=== PATIENT | female | born 1950 | race Caucasian/White ===

== ENCOUNTER 2024-02-05 13:44 | Observation (INO) ==
--- NOTE | 2024-02-05 13:57 | ED.PDOC ---
General ED Provider: Dr. TOÑO JONES DO Chief Complaint: Stroke Stated Complaint: Patient is a 73 yo F here for 30 minutes of mild R corner of the mouth facial droop and R facial numbness She ambulated well to room She is concerned for a stroke, she had some in 2015 and it took her awhile to regain faculties, last time her speech processing was affected Patient alert and oriented x 4 GCS 15 BP 158/90 No falls or injuries No recent surgeries No chest pain or sob Her last stroke [facility] Time Seen by Provider: 02/05/24 13:46 Primary Care Provider: SENDY ALVES Nursing and Triage Documentation Reviewed and Agree: Yes What is Opioid Naive?: *Opioid Naive implies the patient is not already taking opioids or not chronically receiving opioids on a daily basis. *PRN dosing is not "usually" associated with tolerance. *Patients are at higher risk of over-sedation and aspiration. What is Opioid Tolerant?: *Opioid Tolerance implies less than the expected response to an opioid. *Acquired tolerance is defined by the patient taking 60mg of oral morphine daily (or equianalgesic dose of another opioid) for 1 week or more. *Often associated with chronic pain. *May take more than usual dose to achieve desired pain control. Review of Systems Review Of Systems Constitutional: Denies Chills or Fever Eyes: Denies Blindness or Vision change Ears, Nose, Mouth, Throat: Denies Ear pain or Nose pain Respiratory: Denies Cough or Wheezing Cardiac: Denies Chest pain, Palpitations or Syncope GI: Denies Constipated or Diarrhea : Denies Dysuria or Frequency Musculoskeletal: Denies Back pain or Joint pain Skin: Denies Bruising or Rash Neurological: Denies Anxiety or Depressed Endocrine: Reports No symptoms Hematologic/Lymphatic: Reports No symptoms All Other Systems: Reviewed and Negative Physical Exam Physical Exam Appearance: Reports Well-appearing and Well-nourished Ill-appearing: Not Applicable Pain Distress: Not Applicable Eyes: Reports NELL, EOMI and Conjunctiva clear ENT: Reports Ears normal, Nose normal and Oropharynx normal Neck: Supple Respiratory: Reports Airway patent and Breath sounds clear; Denies Wheezes Cardiovascular: Reports RRR and Pulses normal GI/: Reports Soft and Nontender Musculoskeletal: Reports Normal strength and ROM intact Skin: Reports Warm and Dry Neurological: Reports Alert, Oriented and Other NIH Stroke Scale 1a. Level of Consciousness: 0=Alert and keenly responsive 1b. Level of Consciousness Questions: 0=Answers correctly to two questions 1c. Level of Consciousness Commands: 0=Performs two tasks correctly 2. Best Gaze: 0=Normal 3. Visual: 0=No visual loss 4. Facial Palsy: 1=Minor paresis (flattened nasolabila fold) 5a. Motor Left Arm: 0=No drift,arm holds 90 degrees for 10 sec., leg 30 degrees for 5 sec. 5b. Motor Right Arm: 0=No drift,arm holds 90 degrees for 10 sec., leg 30 degrees for 5 sec. 6a. Motor Left Le=No drift,arm holds 90 degrees for 10 sec., leg 30 degrees for 5 sec. 6b. Motor Right Le=No drift,arm holds 90 degrees for 10 sec., leg 30 degrees for 5 sec. 7. Limb Ataxia: 0=Absent 8. Sensory: 1=Mild to moderate sensory loss 9. Best Language: 0=No aphasia 10. Dysarthria: 0=Normal 11. Extincion and Inattention: 0=Normal Stroke Scale Total: 2 Interpretation EKG Interpretation EKG Interpretation By: ED Physician Time of EKG #1: 14:00 Interpretation: NSR rate 85 no stemi RAD Course Course 02/05/24 14:00 02/05/24 14:00 Orders, Labs, Meds: Lab Review 02/05/24 14:00 WBC 5.34 RBC 4.19 L Hgb 13.8 Hct 41.0 MCV 97.9 MCH 32.9 H MCHC 33.7 RDW Coeff of [place] 13.5 Plt Count 261 Immature Gran % (Auto) 0.2 Neut % (Auto) 46.4 Lymph % (Auto) 39.7 [place] % (Auto) 9.0 Eos % (Auto) 4.3 Baso % (Auto) 0.4 Neut # (Auto) 2.5 Lymph # (Auto) 2.1 [place] # (Auto) 0.5 Eos # (Auto) 0.2 Baso # (Auto) 0.0 Immature Gran # (Auto) 0.0 PT 10.2 INR 0.98 APTT 24.1 Sodium 136.8 Potassium 4.18 Chloride 104.3 Carbon Dioxide 25.8 Anion Gap 10.88 BUN 14.0 Creatinine 0.71 Estimated GFR (MDRD) 80.00 BUN/Creatinine Ratio 19.71 Glucose 132.4 H Calcium 9.56 Total Bilirubin 0.73 AST 35.6 ALT 22.9 Alkaline Phosphatase 45.3 L Total Protein 7.37 Albumin 4.52 Globulin 2.85 Albumin/Globulin Ratio 1.58 SARS CoV-2 RNA Rapid ANIBAL Negative Orders Category Date Time Status EKG-(ED ONLY) Stat CARDIO 02/05/24 13:51 Completed NPO REMINDER: IMAGING ONCE CARE 02/05/24 13:51 Completed ED ACCUCHECK ASSESSMENT .ONCE EMERGENCY 02/05/24 13:51 Active ED APPLY O2 .ONCE EMERGENCY 02/05/24 13:51 Active ED IV/MEDIPORT/POWERPORT .ONCE EMERGENCY 02/05/24 13:51 Active CBC W/ AUTO DIFF Stat LAB 02/05/24 14:00 Completed COMPREHENSIVE METABOLIC PANEL Stat LAB 02/05/24 14:00 Completed PARTIAL THROMBOPLASTIN TIME Stat LAB 02/05/24 14:00 Completed PT WITH INR Stat LAB 02/05/24 14:00 Completed SARS COV-2 RNA RAPID ANIBAL Stat LAB 02/05/24 14:00 Completed 0.9 % Sodium Chloride [Saline Flush] Meds 02/05/24 13:50 Active 1 syr IVF PRN PRN Aspirin [Aspirin Chewable] Meds 02/05/24 15:12 Discontinued 324 mg PO ONCE ONE Clopidogrel Bisulfate [Plavix] Meds 02/05/24 15:35 Discontinued 75 mg PO ONCE ONE Sodium Chloride 0.9% [Sodium Chloride] 1,000 ml Meds 02/05/24 13:50 Active IV 30 mls/hr Sodium Chloride 0.9% [Sodium Chloride] 1,000 ml Meds 02/05/24 13:50 Active IV 50 mls/hr CTA ANGIO HEAD Stat RADS 02/05/24 13:50 Completed CTA ANGIO NECK Stat RADS 02/05/24 13:50 Completed Medications Generic Name Dose Route Start Last Admin Trade Name Freq PRN Reason Stop Dose Admin Sodium Chloride 1,000 mls @ 50 mls/hr 02/05/24 13:50 02/05/24 15:16 Sodium Chloride IV 02/06/24 09:49 Not Given .Q20H STA Sodium Chloride 1,000 mls @ 30 mls/hr 02/05/24 13:50 02/05/24 15:16 Sodium Chloride IV 02/06/24 23:09 Not Given .[id number] STA Sodium Chloride 1 syr 02/05/24 13:50 0.9% Sodium Chloride 10 Ml Disp.Syrin IVF PRN PRN To flush IV Discontinued Medications Generic Name Dose Route Start Last Admin Trade Name Freq PRN Reason Stop Dose Admin Aspirin 324 mg 02/05/24 15:12 02/05/24 15:15 Aspirin 81 Mg Tab.Chew PO 02/05/24 15:13 324 mg ONCE ONE Administration Clopidogrel Bisulfate 75 mg 02/05/24 15:35 Clopidogrel Bisulfate 75 Mg Tablet PO 02/05/24 15:36 ONCE ONE Vital Signs: Temp Pulse Resp BP Pulse Ox 02/05/24 14:03 97.7 F 96 20 155/86 H 96 Neurology paged Confucianism, aspirin also given, CTA head and neck wnl Patient would like to stay at this facility for MRI and work up, pending confucianism neurology consult patient symptoms 100% abated MDM: patient is a 73 yo F here for R facial droop and numbness patient afebrile and vitally stable Hx from patient chart review by me 3+ labs and 2 images reviewed by me Exam reassuring Aspirin and plavix given CT had shows no ICH I consulted dr. Tom Acosta calibration engineer neurologist who recommends Dual antiplatelet therapy, with resolved symptoms, NIHSS 2 to now zero and clean CTA head and neck she can stay at [facility] for care DWIGHT Gonzalez accepts admission pending Confucianism cardiology faxes to see if her Loop recorder is MRI compatible WDX: Stroke like symptoms acute mild comepxlity DDX: I considered ICH, sepsis, CO2 narcosis but these are less likely SDOH: Patient has PCP and family support Patient admitted stable All questions answered We will plan for am MRI brain if able vs CT head with contrast if Loop recorder is not MRI compatible Physician Progress Note: [] Discharge Plan Discharge Patient Disposition: PLACED OBSERVATION Discharge Problem: Stroke-like symptoms Prescriptions: No Action cephalexin 500 MG capsule 500 mg PO Q12HR Qty: 20 0RF Did you review [place] [employer] for ALL controlled substances?: Not Applicable ED Provider: TOÑO JONES Condition: Good Agu[place] Coma Scale Agu[place] Coma Scale Response Scores: Best Response = 15 Comatose Client = 8 or Less Totally Unresponsive = 3
[2024-02-05 14:05] LABS: BASOPHILS % (AUTO) 0.4 % (0.0-3.0); EOSINOPHILS # (AUTO) 0.2 K/ul (0.0-0.7); EOSINOPHILS % (AUTO) 4.3 % (0.0-7.0); HEMOGLOBIN 13.8 g/dl (12.0-16.0); IMMATURE GRANULOCYTE % (AUTO) 0.2 % (0.0-5.0); LYMPHOCYTES # (AUTO) 2.1 K/uL (0.60-3.4); LYMPHOCYTES % (AUTO) 39.7 (10.0-50.0); MEAN CORPUSCULAR HEMOGLOBIN 32.9 pg (27.0-31.0); MEAN CORPUSCULAR HGB CONC 33.7 (31.8-35.4); MEAN CORPUSCULAR VOLUME 97.9 fl (81.0-99.0); MONOCYTES # (AUTO) 0.5 K/uL (0.4-2.0); NEUTROPHILS # (AUTO) 2.5 K/ul (2.0-6.9); NEUTROPHILS % (AUTO) 46.4 % (42.2-75.2); PLATELET COUNT 261 10^3/uL (140-440); RDW COEFFICIENT OF VARIATION 13.5 % (11.6-14.8); RED BLOOD COUNT 4.19 10^6/ul (4.20-5.40); WHITE BLOOD COUNT 5.34 K/ul (4.6-10.2)
[2024-02-05 14:20] LABS: ALANINE AMINOTRANSFERASE 22.9 U/L (0-35); ALBUMIN 4.52 g/dL (3.5-5.0); ALKALINE PHOSPHATASE 45.3 U/L (53-141); ASPARTATE AMINO TRANSFERASE 35.6 U/L (14-36); BILIRUBIN,TOTAL 0.73 mg/dL (0.2-1.3); CALCIUM 9.56 mg/dL (8.4-10.2); CARBON DIOXIDE 25.8 mmol/L (22-30.0); CHLORIDE 104.3 mmol/L (98-107); CREATININE 0.71 mg/dL (0.60-1.30); GLUCOSE 132.4 mg/dL (74-106); POTASSIUM 4.18 mmol/L (3.5-5.1); SARS COV-2 RNA RAPID NAAT NEGATIVE (NEGATIVE); SODIUM 136.8 mmol/L (134.5-145); TOTAL PROTEIN 7.37 g/dL (6.3-8.2)
--- NOTE | 2024-02-05 15:02 | CT ---
EXAM: CTA HEAD HISTORY: Right facial numbness and weakness. History of TIA. COMPARISON: None. TECHNIQUE: Unenhanced CT of the head was performed from the skull base to the vertex. CT angiography of the head was performed with 3D/MIP coronal and sagittal reconstructions for evaluation of the cir [place]andal of [place]. FINDINGS: CT head: No intracranial hemorrhage or extra-axial collection. No mass, mass effect or midline shift. The faith -white matter differentiation is preserved. Calcifications are noted in bilateral vasoganglia, nonsp ecific. Chronic lacunar infarct is noted in the right periventricular white matter. The ventricles are normal in size. The basal cisterns are patent. The visualized paranasal sinuses are clear. Th ere is small right mastoid effusion. There has been prior bilateral cataract surgery. The visualized osseous structures are unremarkable. CTA head: There is atherosclerotic calcification of the cavernous and supraclinoid internal carotid arteries. The anterior and middle cerebral arteries are normal in contour and caliber without large vessel occl usion. The vertebrobasilar system is patent. The superior cerebellar and posterior cerebral arteries are no rmal in contour and caliber. There is origin of the left PULMONOLOGY PHYSICIAN. There is no intracranial aneurysm or arteriovenous malformation. IMPRESSION: 1. No acute intracranial findings. 2. Chronic lacunar infarct in the right periventricular white matter. 3. No large vessel occlusion or high grade stenosis within the [place] of [place]. All CT scans are performed using dose optimization techniques as appropriate to the performed exam an d include at least one of the following: Automated exposure control, adjustment of the mA and/or kV according t o size, and the use of iterative reconstruction technique.
[2024-02-05 15:03] LABS: PROTHROMBIN TIME 10.2 SEC (9.3-11.0)
--- NOTE | 2024-02-05 15:03 | CT ---
EXAM: CTA NECK WITHOUT/WITH CONTRAST HISTORY: Right facial weakness/numbness. Previous transient ischemic attack. COMPARISON: None TECHNIQUE: Multi-slice pre and postcontrast transaxial helical images are acquired through the head and neck according to an angiogram protocol. 3-D volume images are provided. All CT scans are perfo rmed using dose optimization techniques as appropriate to the performed exam and includes at least on e of the following: Automated exposure control, adjustment of the mA and/or kV according to size, an d the use of iterative reconstruction technique. CONTRAST: Intravenous FINDINGS: The aorta is atherosclerotic. The left vertebral artery arises directly from the aortic arch. The b rachycephalic and subclavian arteries are patent. The vertebral arteries are patent bilaterally. Th e right vertebral artery is dominant. There is calcified atheromatous plaque at the bilateral caroti d bulbs without evidence of hemodynamically significant stenosis. The bilateral cervical through sup raclinoid segments of the internal carotid arteries are patent. There is no evidence of hemodynamica lly significant stenosis. No suspicious neck masses or lymphadenopathy. The lung apices are clear. Diffuse degenerative disc disease is noted. There is grade 1 anterolisthesis at C3-C4. There is gra de 1/2 anterolisthesis at C4-C5. Additional grade 1 anterolisthesis is noted at C5-C6. There is gra de 1 retrolisthesis at C6-C7. There are mild chronic superior endplate compression deformities at th is T1-T3. No suspicious bone lesions or acute osseous abnormalities. IMPRESSION: - Widely patent bilateral carotid and vertebral systems. - Diffuse degenerative disc disease in the cervical spine. - Multilevel listhesis in the cervical spine is likely degenerative etiology. . All CT scans are performed using dose optimization techniques as appropriate to the performed exam an d include at least one of the following: Automated exposure control, adjustment of the mA and/or kV according t o size, and the use of iterative reconstruction technique.
[2024-02-05 15:04] LABS: PARTIAL THROMBOPLASTIN TIME 24.1 SEC (23.9-40.0)
[2024-02-05] MEDS: ASPIRIN CHEWABLE PO ONE (15:15)
[2024-02-05] MEDS: SODIUM CHLORIDE 1,000 ML IV STA ×2 (15:16)
[2024-02-05] MEDS: PLAVIX PO ONE (15:44)
[2024-02-05 17:03] VITALS: BMI 32.0
[2024-02-05] MEDS ORDERED: TYLENOL PO PRN (17:04)
[2024-02-05] MEDS ORDERED: ZOFRAN 4 MG/2 ML IVP PRN (17:04)
[2024-02-05] MEDS: MOBIC PO SCH (20:41)
[2024-02-05] MEDS: AMBIEN PO SCH (20:41)
[2024-02-05] MEDS: BUSPAR PO SCH (20:41)
[2024-02-05] MEDS: ZOCOR PO SCH (21:39)
[2024-02-05] MEDS: ZETIA PO SCH (21:39)
[2024-02-06 05:13] VITALS: RESP 16
[2024-02-06 05:34] LABS: BASOPHILS % (AUTO) 0.5 % (0.0-3.0); EOSINOPHILS # (AUTO) 0.3 K/ul (0.0-0.7); EOSINOPHILS % (AUTO) 3.9 % (0.0-7.0); HEMATOCRIT 37.4 % (37.0-47.0); HEMOGLOBIN 12.8 g/dl (12.0-16.0); IMMATURE GRANULOCYTE % (AUTO) 0.2 % (0.0-5.0); LYMPHOCYTES # (AUTO) 3.1 K/uL (0.60-3.4); LYMPHOCYTES % (AUTO) 47.1 (10.0-50.0); MEAN CORPUSCULAR HEMOGLOBIN 33.2 pg (27.0-31.0); MEAN CORPUSCULAR HGB CONC 34.2 (31.8-35.4); MEAN CORPUSCULAR VOLUME 96.9 fl (81.0-99.0); MONOCYTES # (AUTO) 0.6 K/uL (0.4-2.0); MONOCYTES % (AUTO) 9.6 (0-10); NEUTROPHILS # (AUTO) 2.6 K/ul (2.0-6.9); NEUTROPHILS % (AUTO) 38.7 % (42.2-75.2); PLATELET COUNT 236 10^3/uL (140-440); RDW COEFFICIENT OF VARIATION 13.5 % (11.6-14.8); RED BLOOD COUNT 3.86 10^6/ul (4.20-5.40); WHITE BLOOD COUNT 6.64 K/ul (4.6-10.2)
[2024-02-06 05:47] LABS: ALANINE AMINOTRANSFERASE 21.1 U/L (0-35); ALBUMIN 4.08 g/dL (3.5-5.0); ALKALINE PHOSPHATASE 46.1 U/L (53-141); ASPARTATE AMINO TRANSFERASE 27.9 U/L (14-36); BILIRUBIN,TOTAL 0.63 mg/dL (0.2-1.3); BLOOD UREA NITROGEN 11.7 mg/dL (7-17); CALCIUM 9.79 mg/dL (8.4-10.2); CARBON DIOXIDE 24.6 mmol/L (22-30.0); CHLORIDE 106.1 mmol/L (98-107); CHOLESTEROL 120.5 mg/dL (0-200); CREATININE 0.54 mg/dL (0.60-1.30); HDL CHOLESTEROL 67.7 mg/dL (35-80); POTASSIUM 3.78 mmol/L (3.5-5.1); TOTAL PROTEIN 6.77 g/dL (6.3-8.2); TRIGLYCERIDES 129.6 mg/dL (0-150)
[2024-02-06] MEDS: SYNTHROID PO SCH (05:59)
[2024-02-06] MEDS ORDERED: ZOCOR PO SCH (09:00)
[2024-02-06] MEDS ORDERED: ZETIA PO SCH (09:00)
[2024-02-06] MEDS: OMEGA-3 FISH OIL PO SCH (09:10)
[2024-02-06] MEDS: PLAVIX PO SCH (09:11)
[2024-02-06] MEDS: MULTIVITAMIN TABLET PO SCH (09:11)
[2024-02-06] MEDS: PROTONIX PO SCH (09:11)
[2024-02-06] MEDS: MYRBETRIQ PO SCH (09:12)
[2024-02-06] MEDS: MOBIC PO SCH (09:12)
[2024-02-06] MEDS: ASPIRIN EC PO SCH (09:12)
[2024-02-06] MEDS: PAXIL PO SCH (09:12)
--- NOTE | 2024-02-06 09:32 | DCSUM ---
Hospital Provider Hospital Provider: QUENTIN TOPETE PA-C, [facility] Physician Primary Care Physician: [facility] Course Vital Signs: Most Recent Vital Signs Temperature 97.2 F L 02/06/24 05:12 Temperature Source Temporal Artery Scan 02/06/24 05:12 Temperature Source Infrared 02/05/24 14:03 Pulse Rate 76 02/06/24 08:00 Respiratory Rate 16 02/06/24 08:00 Blood Pressure 135/86 02/06/24 05:12 Blood Pressure Mean 102 02/06/24 05:12 Blood Pressure Right Arm 157/91 02/05/24 16:53 Blood Pressure Location Right Arm 02/06/24 05:12 Blood Pressure Position Supine 02/06/24 05:12 O2 Sat by Pulse Oximetry 98 02/06/24 05:12 Oxygen Delivery Method Room Air 02/06/24 09:00 Height 5 ft 02/05/24 16:53 Weight 164 lb 02/05/24 16:53 Telemetry Type Remote Telemetry 02/06/24 01:00 Telemetry Monitoring Continues 02/06/24 01:00 Telemetry Heart Rate 80 02/06/24 01:00 EKG [place] Interval 0.28 H 02/06/24 01:00 EKG QRS Interval 0.07 02/06/24 01:00 Telemetry Strip Reading SR WITH 1ST DEGREE AVB 02/06/24 01:00 Lab Results Last 24 Hours: 02/06/24 02/05/24 05:10 14:00 WBC 6.64 5.34 RBC 3.86 L 4.19 L Hgb 12.8 13.8 Hct 37.4 41.0 MCV 96.9 97.9 MCH 33.2 H 32.9 H MCHC 34.2 33.7 RDW Coeff of [place] 13.5 13.5 Plt Count 236 261 Immature Gran % (Auto) 0.2 0.2 Neut % (Auto) 38.7 L 46.4 Lymph % (Auto) 47.1 39.7 [place] % (Auto) 9.6 9.0 Eos % (Auto) 3.9 4.3 Baso % (Auto) 0.5 0.4 Neut # (Auto) 2.6 2.5 Lymph # (Auto) 3.1 2.1 [place] # (Auto) 0.6 0.5 Eos # (Auto) 0.3 0.2 Baso # (Auto) 0.0 0.0 Immature Gran # (Auto) 0.0 0.0 PT 10.2 INR 0.98 APTT 24.1 Sodium 138.0 136.8 Potassium 3.78 4.18 Chloride 106.1 104.3 Carbon Dioxide 24.6 25.8 Anion Gap 11.08 10.88 BUN 11.7 14.0 Creatinine 0.54 L 0.71 Estimated GFR (MDRD) 110.00 80.00 BUN/Creatinine Ratio 21.66 19.71 Glucose 106.0 132.4 H Hemoglobin A1c 6.07 H Calcium 9.79 9.56 Total Bilirubin 0.63 0.73 AST 27.9 35.6 ALT 21.1 22.9 Alkaline Phosphatase 46.1 L 45.3 L Total Protein 6.77 7.37 Albumin 4.08 4.52 Globulin 2.69 2.85 Albumin/Globulin Ratio 1.51 1.58 Triglycerides 129.6 Cholesterol 120.5 LDL Cholesterol, Calc 27 VLDL Cholesterol 26 HDL Cholesterol 67.7 Cholesterol/HDL Ratio 1.8 L SARS CoV-2 RNA Rapid ANIBAL Negative Discharge Instructions Discharge Planning: Discharge Planning > 40 minutes If patient is discharged with left ventricular systolic dysfunction: Discharged with a beta jesus? [] If no, why not? [] Discharged with an spike/arb? [] If no, why not? [] Discharge Medications: Medications at Discharge (Home Meds & RX) amlodipine 5 mg tablet 5 mg PO DAILY 02/05/24 aspirin 81 mg tablet,delayed release (Adult Aspirin Regimen) 81 mg PO DAILY 02/05/24 buspirone 15 mg tablet 15 mg PO BID 02/05/24 esomeprazole magnesium 40 mg capsule,delayed release 40 mg PO DAILY 02/05/24 ezetimibe 10 mg-simvastatin 80 mg tablet 1 tab PO DAILY 02/05/24 levothyroxine 100 mcg tablet (Synthroid) 100 mcg PO DAILY 02/05/24 meloxicam 7.5 mg tablet 7.5 mg PO BID 02/05/24 mirabegron 50 mg tablet,extended release 24 hr (Myrbetriq) 50 mg PO DAILY 02/05/24 inopqkivjtis-bztyzsvh-avxaax tablet (Multivitamin 50 Plus tablet) 1 tab PO DAILY 02/05/24 omega 1-idf-ydk-fish oil 1,000 mg (120 mg-180 mg) capsule (Fish Oil) 1 cap PO DAILY 02/05/24 paroxetine HCl 40 mg tablet 40 mg PO DAILY 02/05/24 zolpidem 10 mg tablet 10 mg PO BEDTIME 02/05/24 Discharge Plan Discharge Discharge Orders: Discharge Patient (ONCE); Ordered 02/06/24 Ordered By: QUENTIN TOPETE Prescriptions: No Action amlodipine 5 mg tablet 5 mg PO DAILY meloxicam 7.5 mg tablet 7.5 mg PO BID levothyroxine [Synthroid] 100 mcg tablet 100 mcg PO DAILY esomeprazole magnesium 40 mg capsule,delayed release(DR/EC) 40 mg PO DAILY zolpidem 10 mg tablet 10 mg PO BEDTIME paroxetine HCl 40 mg tablet 40 mg PO DAILY buspirone 15 mg tablet 15 mg PO BID ezetimibe-simvastatin 10-80 mg tablet 1 tab PO DAILY Myrbetriq 50 mg tablet extended release 24 hr 50 mg PO DAILY aspirin [Adult Aspirin Regimen] 81 mg tablet,delayed release (DR/EC) 81 mg PO DAILY Multivitamin 50 Plus Tablet 1 tab PO DAILY omega 0-bgh-lpq-fish oil [Fish Oil] 1,000 mg (120 mg-180 mg) capsule 1 cap PO DAILY Condition: Good
--- NOTE | 2024-02-06 10:54 | PCM.SS ---
Provider Provider: QUENTIN TOPETE PA-C, [facility] Admission Date Admission Date: 02/05/24 Discharge Date Discharge Date: 02/06/24 Primary Care Physician Primary Care Physician: SENDY ALVES Chief Complaint Reason For Visit: TIA History of Present Illness History of Present Illness: Admitted 02/05/24 16:27, this 73 year old /WHITE/F with pmhx of CVA in 2014, hypertension, hypothyroidism, GERD, anxiety who presented to the ER with cc of right sided facial numbness and droop for about 1 hour starting about noon-1pm on 02/04. Patient states she had just finished putting on her make up when she noticed it. No other symptoms noted. Carr like her speech was affected just because her lips weren't moving as they should, but she had no difficulty getting her words out. She states she had two small strokes in 2014. She has since had a loop recorder in that was just never removed. It did not find any a fib at the time. She states it is no longer active or being monitored. In ER her CTA h/n were negative for acute findings. ERP spoke with underground production foreperson neuro at [facility], Dr. Santos, who recommended dual antiplatelets. Plavix was added to her normal baby asa. On my evaluation this morning patient is at baseline. She has no complaints. Symptoms have remained resolved since in the ER yesterday. She states she's been very stressed lately. [facility] Medical History Cataract fragments in both eyes following surgery H59.023 - Cataract (lens) fragments in eye following cataract surgery, bilateral (ICD-10) Bronchiolitis J21.9 - Acute bronchiolitis, unspecified (ICD-10) History of TIAs Z86.73 - Personal history of transient ischemic attack (TIA), and cerebral infarction without residual deficits (ICD-10) Arthritis M19.90 - Unspecified osteoarthritis, unspecified site (ICD-10) Hypothyroidism E03.9 - Hypothyroidism, unspecified (ICD-10) Acid reflux K21.9 - Gastro-esophageal reflux disease without esophagitis (ICD-10) Anxiety F41.9 - Anxiety disorder, unspecified (ICD-10) History of asthma Z87.09 - Personal history of other diseases of the respiratory system (ICD- 10) Hyperlipemia E78.5 - Hyperlipidemia, unspecified (ICD-10) Hypertension I10 - Essential (primary) hypertension (ICD-10) Surgical History H/O: hysterectomy Z90.710 - Acquired absence of both cervix and uterus (ICD-10) History of lumpectomy of right breast Z98.890 - Other specified postprocedural states (ICD-10) History of left ankle joint replacement Z96.662 - Presence of left artificial ankle joint (ICD-10) H/O umbilical hernia repair Z98.890 - Other specified postprocedural states (ICD-10) Z87.19 - Personal history of other diseases of the digestive system (ICD-10) H/O total hip arthroplasty Z96.649 - Presence of unspecified artificial hip joint (ICD-10) H/O shoulder replacement Z96.619 - Presence of unspecified artificial shoulder joint (ICD-10) H/O cataract removal with insertion of prosthetic lens Z98.49 - Cataract extraction status, unspecified eye (ICD-10) Z96.1 - Presence of intraocular lens (ICD-10) H/O artificial lens replacement Z96.1 - Presence of intraocular lens (ICD-10) Family History Mother Stroke FATHER Skin cancer (melanoma) Social History Smoking and tobacco status: Never smoker Alcohol intake: current Alcohol intake frequency: holidays/special occasions only Alcohol type: wine Substance use type: does not use Chayo/rastafari: CHRISTIANITY Medications Mecications: Medications at Discharge (Home Meds & RX) amlodipine 5 mg tablet 5 mg PO DAILY 02/05/24 aspirin 81 mg tablet,delayed release (Adult Aspirin Regimen) 81 mg PO DAILY 02/05/24 buspirone 15 mg tablet 15 mg PO BID 02/05/24 esomeprazole magnesium 40 mg capsule,delayed release 40 mg PO DAILY 02/05/24 ezetimibe 10 mg-simvastatin 80 mg tablet 1 tab PO DAILY 02/05/24 levothyroxine 100 mcg tablet (Synthroid) 100 mcg PO DAILY 02/05/24 meloxicam 7.5 mg tablet 7.5 mg PO BID 02/05/24 mirabegron 50 mg tablet,extended release 24 hr (Myrbetriq) 50 mg PO DAILY 02/05/24 kbxzdxpwhssc-zxiwaidk-yfaarn tablet (Multivitamin 50 Plus tablet) 1 tab PO DAILY 02/05/24 omega 7-qnz-dmw-fish oil 1,000 mg (120 mg-180 mg) capsule (Fish Oil) 1 cap PO DAILY 02/05/24 paroxetine HCl 40 mg tablet 40 mg PO DAILY 02/05/24 zolpidem 10 mg tablet 10 mg PO BEDTIME 02/05/24 Allergies Allergies Allergy/AdvReac Type Severity Reaction Status Date / Time azithromycin [From Zithromax] AdvReac Verified 02/05/24 15:49 vancomycin AdvReac Verified 02/05/24 15:49 Review of Systems Constitutional: Denies Fever, Fatigue or Weakness Head: Reports Normocephalic and Atraumatic Cardiovascular: Denies Chest pain, Chest Pressure or Edema Respiratory: Denies Cough or Shortness of air Gastrointestinal: Denies Nausea, Vomiting, Diarrhea, Abdominal pain or Melena Genitourinary: Denies Dysuria or Frequency Neurological: Reports Speech difficulty and Other (+right facial droop, numbness, affecting her speech x1 hour, now resolved ); Denies Headache, Dizziness or Syncope Psychiatric: Reports Anxiety Physical Examination Appearance: Positive Well-appearing, Well-nourished, No Apparent Distress and Alert and Oriented x3 Head: Positive Normocephalic and Atraumatic Eyes: Positive NELL and EOMI Neck: Positive Supple, Non-Tender and Trachea Midline Heart: Positive RRR Respiratory: Positive Breath Sounds Clear, Bilaterally; Negative Crackles, Rhonchi or Wheezes GI/: Positive Soft, Nontender, Bowel sounds normal and No Distention Extremities: Negative Edema Neurological: Positive Cranial nerves intact, Normal Gait, Recent Memory Intact, Remote Memory Intact, Sensation Intact, Motor Intact, Alert and Oriented; Negative Focal Deficit Psychiatric: Positive Normal Judgement, Normal Insight, Affect Appropriate and Mood Appropriate Vital Signs (Last 4 Hours) Vital Signs Last 4 Hours: Vital Signs: Last 4 Hours 02/06/24 07:00 02/06/24 07:00 02/06/24 08:00 Temperature Temperature Source Pulse Rate Pulse Rate [Apical] Respiratory Rate Blood Pressure Blood Pressure Mean Blood Pressure Location Blood Pressure Position O2 Sat by Pulse Oximetry Oxygen Delivery Method Room Air Room Air Telemetry Type Remote Telemetry Telemetry Monitoring Continues Telemetry Heart Rate 86 EKG KS Interval 0.20 EKG QRS Interval 0.06 Telemetry Strip Reading NSR 02/06/24 08:00 02/06/24 09:00 02/06/24 10:00 Temperature Temperature Source Pulse Rate Pulse Rate [Apical] 76 Respiratory Rate 16 Blood Pressure Blood Pressure Mean Blood Pressure Location Blood Pressure Position O2 Sat by Pulse Oximetry Oxygen Delivery Method Room Air Room Air Room Air Telemetry Type Telemetry Monitoring Telemetry Heart Rate EKG KS Interval EKG QRS Interval Telemetry Strip Reading 02/06/24 10:00 Temperature 97.4 F L Temperature Source Temporal Artery Scan Pulse Rate 84 Pulse Rate [Apical] Respiratory Rate 16 Blood Pressure 150/86 H Blood Pressure Mean 107 Blood Pressure Location Left Arm Blood Pressure Position Sitting O2 Sat by Pulse Oximetry 98 Oxygen Delivery Method Room Air Telemetry Type Telemetry Monitoring Telemetry Heart Rate EKG KS Interval EKG QRS Interval Telemetry Strip Reading Labs This Visit Labs This Visit: Labs This Visit 02/05/24 02/06/24 14:00 05:10 WBC 5.34 6.64 RBC 4.19 L 3.86 L Hgb 13.8 12.8 Hct 41.0 37.4 MCV 97.9 96.9 MCH 32.9 H 33.2 H MCHC 33.7 34.2 RDW Coeff of [place] 13.5 13.5 Plt Count 261 236 Immature Gran % (Auto) 0.2 0.2 Neut % (Auto) 46.4 38.7 L Lymph % (Auto) 39.7 47.1 [place] % (Auto) 9.0 9.6 Eos % (Auto) 4.3 3.9 Baso % (Auto) 0.4 0.5 Neut # (Auto) 2.5 2.6 Lymph # (Auto) 2.1 3.1 [place] # (Auto) 0.5 0.6 Eos # (Auto) 0.2 0.3 Baso # (Auto) 0.0 0.0 Immature Gran # (Auto) 0.0 0.0 PT 10.2 INR 0.98 APTT 24.1 Sodium 136.8 138.0 Potassium 4.18 3.78 Chloride 104.3 106.1 Carbon Dioxide 25.8 24.6 Anion Gap 10.88 11.08 BUN 14.0 11.7 Creatinine 0.71 0.54 L Estimated GFR (MDRD) 80.00 110.00 BUN/Creatinine Ratio 19.71 21.66 Glucose 132.4 H 106.0 Hemoglobin A1c 6.07 H Calcium 9.56 9.79 Total Bilirubin 0.73 0.63 AST 35.6 27.9 ALT 22.9 21.1 Alkaline Phosphatase 45.3 L 46.1 L Total Protein 7.37 6.77 Albumin 4.52 4.08 Globulin 2.85 2.69 Albumin/Globulin Ratio 1.58 1.51 Triglycerides 129.6 Cholesterol 120.5 LDL Cholesterol, Calc 27 VLDL Cholesterol 26 HDL Cholesterol 67.7 Cholesterol/HDL Ratio 1.8 L SARS CoV-2 RNA Rapid ANIBAL Negative Imaging Imaging: EXAM: CTA HEAD HISTORY: Right facial numbness and weakness. History of TIA. COMPARISON: None. TECHNIQUE: Unenhanced CT of the head was performed from the skull base to the vertex. CT angiography of the head was performed with 3D/MIP coronal and sagittal reconstructions for evaluation of the [place]. FINDINGS: CT head: No intracranial hemorrhage or extra-axial collection. No mass, mass effect or midline shift. The faith-white matter differentiation is preserved. Calcifications are noted in bilateral vasoganglia, nonspecific. Chronic lacunar infarct is noted in the right periventricular white matter. The ventricles are normal in size. The basal cisterns are patent. The visualized paranasal sinuses are clear. There is small right mastoid effusion. There has been prior bilateral cataract surgery. The visualized osseous structures are unremarkable. CTA head: There is atherosclerotic calcification of the cavernous and supraclinoid internal carotid arteries. The anterior and middle cerebral arteries are normal in contour and caliber without large vessel occlusion. The vertebrobasilar system is patent. The superior cerebellar and posterior cerebral arteries are normal in contour and caliber. There is origin of the left CHANGE MANAGEMENT DIRECTOR. There is no intracranial aneurysm or arteriovenous malformation. IMPRESSION: 1. No acute intracranial findings. 2. Chronic lacunar infarct in the right periventricular white matter. 3. No large vessel occlusion or high grade stenosis within the [place]. EXAM: CTA NECK WITHOUT/WITH CONTRAST HISTORY: Right facial weakness/numbness. Previous transient ischemic attack. COMPARISON: None TECHNIQUE: Multi-slice pre and postcontrast transaxial helical images are acquired through the head and neck according to an angiogram protocol. 3-D volume images are provided. All CT scans are performed using dose optimization techniques as appropriate to the performed exam and includes at least one of the following: Automated exposure control, adjustment of the mA and/or kV according to size, and the use of iterative reconstruction technique. CONTRAST: Intravenous FINDINGS: The aorta is atherosclerotic. The left vertebral artery arises directly from the aortic arch. The brachycephalic and subclavian arteries are patent. The vertebral arteries are patent bilaterally. The right vertebral artery is dominant. There is calcified atheromatous plaque at the bilateral carotid bulbs without evidence of hemodynamically significant stenosis. The bilateral cervical through supraclinoid segments of the internal carotid arteries are patent. There is no evidence of hemodynamically significant stenosis. No suspicious neck masses or lymphadenopathy. The lung apices are clear. Diffuse degenerative disc disease is noted. There is grade 1 anterolisthesis at C3-C4. There is grade 1/2 anterolisthesis at C4-C5. Additional grade 1 anterolisthesis is noted at C5-C6. There is grade 1 retrolisthesis at C6-C7. There are mild chronic superior endplate compression deformities at this T1-T3. No suspicious bone lesions or acute osseous abnormalities. IMPRESSION: - Widely patent bilateral carotid and vertebral systems. - Diffuse degenerative disc disease in the cervical spine. - Multilevel listhesis in the cervical spine is likely degenerative etiology. EXAM: CT HEAD WITHOUT CONTRAST HISTORY: CTA symptoms COMPARISON: CTA head from 02/05/2024 TECHNIQUE: Serial axial images of the brain were obtained from the skull base to the vertex without IV contrast. FINDINGS: No acute intracranial hemorrhage. No hydrocephalus. No midline shift. Parenchymal volume loss. Chronic microangiopathy. The calvarium is intact. Basal ganglia and dentate nuclei calcifications appear IMPRESSION: No acute intracranial abnormality. If symptoms or clinical concerns persist, consider follow-up MRI brain. Review Review Statement: I have independently reviewed and interpreted the labs/EKGs/imaging that were ordered by the ER provider. I have reviewed all outside records that are available currently in our EMR including imaging/notes/labs from previous visits. Plan Reccomendations/Plan: 1. CVA vs TIA - Symptoms resolved, NIH 0, Echo, repeat CT head today, unable to do MRI due to loop recorder. Cont asa, add plavix per neuro recs. Tele. 2. Hypertension - hold antihypertensives 3. Hypothyroidism - Cont home meds 4. Hyperlipidemia - Cont home meds 5. Anxiety - Cont home meds 6. GERD - Cont home meds Patient's repeat CT head was without acute findings. Echo grossly normal per Dr. Simon Mariano. Will send on event monitor, results to pcp to evaluate for underlying a fib. Per patient, her loop recorder is not functioning or being monitored anymore. Cont asa and plavix. S/e of plavix discussed. Discharge Diagnoses: 1. TIA 2. Hypertension 3. Hypothyroidism 4. Hyperlipidemia 5. Anxiety 6. GERD 7. Hx of CVA Additional Planning: Case discussed with ED Physician, Dr. Ledesma. [facility]in minutes spent discussing advance care planning. DNR Admit to: Obs Discussed Plan of Care with Dr. Karrie Mariano. Review With Patient Reviewed with Patient and Family: Patient and family have been counseled on condition and care plan and have no immediate questions. I have personally discussed and reviewed the patient's visit/current labs/imaging/decision making with Dr. Karrie Mariano, my supervising attending. Total number of minutes spent with patient [ 85 ] min. More than 50% of the time spent with this patient was devoted to counseling and coordination of care. Time of Admission:02/05/24 16:27 Time of Discharge: 02/06/24 0930 Discharge Plan Discharge Discharge Orders: Discharge Patient (ONCE); Ordered 02/06/24 Ordered By: QUENTIN TOPETE Activity Restrictions/Additional Instructions: DISCHARGE TO HOME DX: TIA DIET: HEART HEALTHY ACTIVITY: TOLERATED RECOMMEND OUTPATIENT F/U WITH NEUROLOGY PHARMACY: [facility] RECOMMEND STOPPING MELOXICAM (SINCE ADDING PLAVIX). MAY USE TYLENOL INSTEAD. -This combination may cause unusual bleeding, severe abdominal pain, weakness, and the appearance of black, tarry stools. Instructions: Stroke (DC) Care Plan Goals: Problem: Impaired Mobility Goal: Demonstrates improved mobility Instructions: Gradually increase activity as tolerated Assistance devices as indicated Notify provider of declines in mobilityProblem: Activity Intolerance Goal: Demonstrate increased activity intolerance Instructions: Determine cause of activity intolerance Change positions slowly Gradually increase activity Report intolerances to provider Patient Disposition: HOME SELF-CARE Prescriptions: New clopidogrel [Plavix] 75 mg Tablet 75 mg PO DAILY Qty: 30 0RF Continued amlodipine 5 mg tablet 5 mg PO DAILY levothyroxine [Synthroid] 100 mcg tablet 100 mcg PO DAILY esomeprazole magnesium 40 mg capsule,delayed release(DR/EC) 40 mg PO DAILY zolpidem 10 mg tablet 10 mg PO BEDTIME paroxetine HCl 40 mg tablet 40 mg PO DAILY buspirone 15 mg tablet 15 mg PO BID ezetimibe-simvastatin 10-80 mg tablet 1 tab PO DAILY Myrbetriq 50 mg tablet extended release 24 hr 50 mg PO DAILY aspirin [Adult Aspirin Regimen] 81 mg tablet,delayed release (DR/EC) 81 mg PO DAILY Multivitamin 50 Plus Tablet 1 tab PO DAILY omega 5-uql-ttc-fish oil [Fish Oil] 1,000 mg (120 mg-180 mg) capsule 1 cap PO DAILY Discontinued meloxicam 7.5 mg tablet 7.5 mg PO BID Did you review [place] PRODUCTION PLANNING MANAGER for ALL controlled substances?: Not Applicable Discussed opioids are addictive and Narcan is available by prescription or from pharmacy.: No Condition: Good
--- NOTE | 2024-02-06 14:04 | CT ---
EXAM: CT HEAD WITHOUT CONTRAST HISTORY: CTA symptoms COMPARISON: CTA head from 02/05/2024 TECHNIQUE: Serial axial images of the brain were obtained from the skull base to the vertex without IV contrast. FINDINGS: No acute intracranial hemorrhage. No hydrocephalus. No midline shift. Parenchymal volume loss. Chronic microangiopathy. The calvarium is intact. Basal ganglia and dentate nuclei calcifications appear IMPRESSION: No acute intracranial abnormality. If symptoms or clinical concerns persist, consider follow-up MRI brain. All CT scans are performed using dose optimization techniques as appropriate to the performed exam an d include at least one of the following: Automated exposure control, adjustment of the mA and/or kV according t o size, and the use of iterative reconstruction technique.
[2024-02-06 14:12] VITALS: BP 125/61; PULSE 73; TEMP 97.5
--- NOTE | 2024-02-07 09:32 | ECHO2D ---
Date of Exam: 02/06/2024 Ordering Physician: HOSPITALIST-JANELLE SAAVEDRA, PCP- [facility] Room #: [id number] Reason for Echo: STROKE SYMPTOMS, HX CVA, HTN, HYPERLIPIDEMIA M-Mode Normal Adult Results LV Dimensions Normal Adult Results AoV Opening excursions >1.6 >1.6 LVEDD-base- 3.5-5.8 4.0 Ao root dimensions 2.0-3.7 3.0 LVESD-base- 3.1-4.6 L. Atrium dimensions 1.9-3.8 3.6 Post. Wall thickness 0.8-1.1 1.2 IV septum (thickness) 0.7-1.2 1.2 Post. Wall excursion 0.72-1.3 NORMAL Septal motion NORMAL Systolic motion R. Ventricular cavity 1.5-2.0 3.5 LVEF 60% 65% Paradoxical septal wall motion NORMAL 2-D : 2-D M Mode Echocardiogram was performed using apical four chamber and left parasternal long and short axis views. Tricuspid and aortic valves appear to be normal. Calcific mitral valve annulus. Contractility of the left ventricle seems to be normal, so is the cavity size. Left atrial cavity size and aortic root appear to be normal. There is no pericardial effusion. There is no thrombus noted in the left ventricle or left atrial cavity. Enlarged right ventricle cavity. M-MODE: MV: CALCIFIC MITRAL VALVE ANNULUS (MILD) AV: MILDLY CALCIFIC AORTIC VALVE LEAFLETS TV: NORMAL PV: NORMAL CHAMBER SIZE: ENLARGED RIGHT VENTRICLE CAVITY WALL MOTION: NORMAL PERICARDIUM: NORMAL INTERPRETATION: 1. BORDERLINE LEFT VENTRICLE HYPERTROPHY 2. ENLARGED RIGHT VENTRICLE CAVITY 3. NORMAL LEFT VENTRICLE SIZE AND LEFT VENTRICLE CONTRACTILITY 4. CALCIFIC MITRAL VALVE ANNULUS AND caicific AORTIC VALVE leaflets MTDD
== END 2024-02-06 15:52 | disposition home or self-care (01) ==
LOC: ED 13:44 → MEDSURG B 13:44
PROVIDERS: ADMIT Hospitalist; ATTEND Physician Assistant